=== PATIENT | male | born 1985 | race Caucasian/White ===

== ENCOUNTER 2017-05-07 14:30 | Emergency (ER) | payer OTHER ==
[2017-05-07 14:34] VITALS: BP 150/78; PULSE 68; RESP 18; TEMP 97.6; O2SAT 100
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
== END 2017-05-07 15:03 | disposition home or self-care (01) ==
LOC: ED 14:30
DX: T14.8XXA Other injury of unspecified body region, initial encounter (principal); V43.52XA Car driver injured in collision with other type car in traffic accident, initial encounter; Y92.410 Unspecified street and highway as the place of occurrence of the external cause

== ENCOUNTER 2017-08-01 22:31 | Emergency (ER) | payer OTHER ==
[2017-08-01 22:41] VITALS: BMI 28.5
[2017-08-01 22:44] VITALS: RESP 18
--- NOTE | 2017-08-01 23:08 | ED PDOC ---
Arrival/HPI - General Chief Complaint: Chest Pain Time Seen by Provider: 08/01/17 22:37 Historian: Patient - History of Present Illness Narrative History of Present Illness (Text): 08/01/17 23:04 Maria Luisa Hurst is a 31 year old male, with no significant past medical history, who presents to the Emergency department complaining of left-sided chest discomfort for the past 3 months. Patient states pain is reproducible with movement and palpation of the area, notes it was more persistent tonight. Patient denies any history of recent trauma/injury. Patient denies any fever, chills, shortness of breath, cough, nausea, vomiting, neck pain, headache, or any other complaints. Symptom Onset: Gradual Symptom Course: Unchanged Activities at Onset: Light Context: Home Past Medical History - Provider Review Nursing Documentation Reviewed: Yes - Infectious Disease Hx of Infectious Diseases: None - Psychiatric Hx Substance Use: No - Anesthesia Hx Anesthesia: No Family/Social History - Physician Review Nursing Documentation Reviewed: Yes Family/Social History: Unknown Family HX Smoking Status: Never Smoked Hx Alcohol Use: Yes Hx Substance Use: No Allergies/Home Meds Allergies/Adverse Reactions: Allergies No Known Allergies Allergy (Verified 05/07/17 14:42) Review of Systems - Physician Review All systems were reviewed & negative as marked: Yes - Review of Systems Constitutional: Normal. absent: Fevers Eyes: Normal ENT: Normal Respiratory: Normal. absent: SOB, Cough Cardiovascular: Chest Pain Gastrointestinal: Normal. absent: Abdominal Pain, Diarrhea, Nausea, Vomiting Genitourinary Male: Normal. absent: Dysuria, Frequency, Hematuria, Urinary Output Changes Musculoskeletal: Normal. absent: Back Pain, Neck Pain Skin: Normal. absent: Rash Neurological: Normal. absent: Headache, Dizziness Endocrine: Normal Hemo/Lymphatic: Normal Psychiatric: Normal Physical Exam Vital Signs Reviewed: Yes Vital Signs Temp Pulse Resp BP Pulse Ox 08/01/17 22:50 98.4 F 08/01/17 22:43 75 18 134/78 97 Temperature: Afebrile Blood Pressure: Normal Pulse: Regular Respiratory Rate: Normal Appearance: Positive for: Well-Appearing, Non-Toxic, Comfortable Pain Distress: None Mental Status: Positive for: Alert and Oriented X 3 - Systems Exam Head: Present: Atraumatic, Normocephalic Pupils: Present: PERRL Extroacular Muscles: Present: EOMI Conjunctiva: Present: Normal Mouth: Present: Moist Mucous Membranes Neck: Present: Normal Range of Motion Respiratory/Chest: Present: Clear to Auscultation, Good Air Exchange, Tender to Palpation (Mild tenderness on palpation of left anterior chest). No: Respiratory Distress, Accessory Muscle Use Cardiovascular: Present: Regular Rate and Rhythm, Normal S1, S2. No: Murmurs Abdomen: Present: Normal Bowel Sounds. No: Tenderness, Distention, Peritoneal Signs Back: Present: Normal Inspection Upper Extremity: Present: Normal Inspection. No: Cyanosis, Edema Lower Extremity: Present: Normal Inspection. No: Edema Neurological: Present: GCS=15, CN II-XII Intact, Speech Normal Skin: Present: Warm, Dry, Normal Color. No: Rashes Psychiatric: Present: Alert, Oriented x 3, Normal Insight, Normal Concentration Medical Decision Making ED Course and Treatment: 08/01/17 23:04 Impression: 31 year old male complaining of left-sided chest pain x 3 months, reproducible with palpation and movement. Plan: -- EKG -- Chest X-ray -- Labs, cardiac enzymes -- Toradol -- Reassess and disposition Progress Notes: Reviewed EKG, NSR at 67 bpm. Sinus arrhythmia. No acute changes. 08/01/17 23:49 Chest X-ray reviewed, shows no acute processes. 08/02/17 00:25 On re-evaluation, patient feels better and is in no acute distress. I have discussed the results and plan with the patient, who expresses understanding. Patient in agreement with plan to be discharged home. Patient is stable for discharge. Patient was instructed to follow up with physician or return if symptoms worsen or new concerning symptoms arise. - Lab Interpretations Lab Results: 08/01/17 22:40 08/01/17 22:40 Lab Results 08/01/17 22:40: WBC 8.7, RBC 5.05, Hgb 14.5, Hct 39.8 L, MCV 78.8 L, MCH 28.7, MCHC 36.4, RDW 12.9, Plt Count 236, MPV 9.2 08/01/17 22:40: Sodium 141, Potassium 3.6, Chloride 103, Carbon Dioxide 26, Anion Gap 16, BUN 12, Creatinine 1.0, Est GFR ( Amer) > 60, Est GFR (Non- Af Amer) > 60, Random Glucose 93, Calcium 9.3, Total Bilirubin 0.3, AST 30, ALT 43, Alkaline Phosphatase 53, Lactate Dehydrogenase 404, Total Creatine Kinase 98 , Troponin I < 0.01, Total Protein 7.6, Albumin 4.3, Globulin 3.3, Albumin/ Globulin Ratio 1.3 I have reviewed the lab results: Yes - RAD Interpretation Radiology Orders: 08/01/17 23:09 CHEST PORTABLE [RAD] Stat Baker Head: ED Physician - EKG Interpretation Interpreted by ED Physician: Yes Type: 12 lead EKG - Medication Orders Current Medication Orders: Discontinued Medications Ketorolac Tromethamine (Toradol) 30 mg IVP ONCE ONE Stop: 08/01/17 23:12 Last Admin: 08/01/17 23:31 Dose: 30 mg MAR Pain Assessment Document 08/01/17 23:31 IT (Rec: 08/01/17 23:31 IT [facility] [id number]) Pain Reassessment Is this a pain reassessment? No Sleep Is patient sleeping during reassessment? No Presence of Pain Presence of Pain Yes Pain Scale Used Pain Scale Used Numeric IVP Administration Document 08/01/17 23:31 IT (Rec: 08/01/17 23:31 IT [facility] [id number]) Charges for Administration # of IVP Administrations 1 - Scribe Statement The provider has reviewed the documentation as recorded by the Scribe Shaniqua Mehta All medical record entries made by the Scribe were at my direction and personally dictated by me. I have reviewed the chart and agree that the record accurately reflects my personal performance of the history, physical exam, medical decision making, and the department course for this patient. I have also personally directed, reviewed, and agree with the discharge instructions and disposition. Disposition/Present on Arrival - Present on Arrival Any Indicators Present on Arrival: No History of DVT/PE: No History of Uncontrolled Diabetes: No Urinary Catheter: No History of Decub. Ulcer: No History Surgical Site Infection Following: None - Disposition Have Diagnosis and Disposition been Completed?: Yes Diagnosis: Muscular chest pain Disposition: HOME/ ROUTINE Disposition Time: 00:26 Patient Plan: Discharge Patient Problems: Current Active Problems Problem Status Onset Muscular chest pain Acute Condition: GOOD Discharge Instructions (ExitCare): Chest Pain (ED) Additional Instructions: Rest/no strenuous physical activity/medication as prescribed/follow up with your doctor this week Prescriptions: Naproxen [Naprosyn] 500 mg PO BID PRN #14 tab PRN Reason: Pain Referrals: Ceferino Lopez MD [Primary Care Provider] - Follow up with primary Forms: [employer] (Greenlandic)
[2017-08-01 23:26] LABS: HEMOGLOBIN 14.5 g/dL (14.0-18.0); MEAN CELL VOLUME 78.8 fl (80.0-105.0); MEAN CORPUSCULAR HEMOGLOBIN 28.7 pg (25.0-35.0); MEAN CORPUSCULAR HGB CONC 36.4 g/dl (31.0-37.0); MEAN PLATELET VOLUME 9.2 fl (7.0-11.0); RBC 5.05 10^6/uL (3.5-6.1); RED CELL DISTRIBUTION WIDTH 12.9 % (11.5-14.5); WHITE BLOOD COUNT 8.7 10^3/ul (4.5-11.0)
[2017-08-01 23:37] LABS: ALB/GLOB RATIO 1.3 (1.1-1.8); ALBUMIN 4.3 g/dL (3.0-4.8); ALT/SGPT 43 U/L (7-56); AST/SGOT 30 U/L (17-59); BLOOD UREA NITROGEN 12 mg/dL (7-21); CALCIUM 9.3 mg/dL (8.4-10.5); GFR AFRICAN-AMERICAN > 60; GFR NON-AFRICAN AMERICAN > 60
[2017-08-01 23:48] LABS: TROPONIN I < 0.01 ng/mL
[2017-08-02 00:42] VITALS: BP 132/78; PULSE 72; TEMP 98.2; O2SAT 100
--- NOTE | 2017-08-02 08:16 | RAD ---
HISTORY: pain COMPARISON: No prior. FINDINGS: LUNGS: No active pulmonary disease. PLEURA: No significant pleural effusion identified, no pneumothorax apparent. CARDIOVASCULAR: Normal. OSSEOUS STRUCTURES: No significant abnormalities. VISUALIZED UPPER ABDOMEN: Normal. OTHER FINDINGS: None. IMPRESSION: No active disease.
--- NOTE | 2017-08-02 10:39 | CARD ---
APPROVED REPORT EKG Measurement Heart [id number] <Conclusion> Normal sinus rhythm with sinus arrhythmia Normal ECG
== END 2017-08-02 00:42 | disposition home or self-care (01) ==
LOC: ED 22:31
DX: R07.89 Other chest pain (principal)
CPT/HCPCS: 71045; 80053; 82550; 83615; 84484; 85027; 93005; 96374; 99283; J1885